=== PATIENT | male | born 1985 | race Caucasian/White ===

== ENCOUNTER 2016-10-14 14:33 | Emergency (ER) | payer BC, OTHER ==
[~2016-10-14] VITALS: Ht 177.8 cm; Wt 102.1 kg
[~2016-10-14 14:33] MED LIST: CPR500 PO
[2016-10-14 14:43] VITALS: TEMP 36.7; Ht 177.8 cm; Wt 102.1 kg
--- NOTE | 2016-10-14 15:04 | EMERGENCY ROOM VISIT NOTE ---
History Report prepared by Pankaj: Frederick Peraza Under the Supervision of: Dr. Eliza Orozco D.O. First contact with patient: 14:47 Chief Complaint: ANXIETY Stated Complaint: ANXIETY OUT OF CONTROL History of Present Illness The patient is a 31 year old male who presents to the Emergency Room with complaints of persistent anxiety for the past three days. The patient becomes anxious about irrational thoughts, such as being fixated on his own breathing or the need to urinate. Yesterday he had to call [facility] because he could not stop worrying about his breathing. He is not sure what triggered this episode of anxiety. He had a similar episode in August when he was obsessed with the need to urinate. At that time, he saw a therapist and eventually was back at baseline. He does not take any medications. He also has a history of depression. He denies any suicidal or homicidal ideations. The patient does have a family history of depression and suicide. The patient was diagnosed with diabetes in the past which is under control with dietary changes. He does not take anything or even check his sugars. He denies any recent illness. Source of History: patient Onset: three days ago Position: other (psyche ) Quality: other (anxious) Timing: other (persistent) Modifying Factors (Worsening): other (no known triggers) Review of Systems See HPI for pertinent positives & negatives. A total of 10 systems reviewed and were otherwise negative. Past Medical & Surgical Medical Problems: (1) Depression (2) Diabetes Family History FH: depression Social History Smoking Status: Never Smoker Marital Status: single Occupation Status: employed Current/Historical Medications Scheduled PRN Lorazepam (Ativan), 1 MG PO Q8H PRN for Anxiety/Insomnia Allergies Coded Allergies: No Known Allergies (Unverified , 10/14/16) Physical Exam Vital Signs Date Time Temp Pulse Resp B/P Pulse Ox O2 Delivery O2 Flow Rate FiO2 10/14/16 18:58 89 18 135/84 98 Room Air 10/14/16 17:36 90 18 157/76 98 Room Air 10/14/16 16:15 71 18 134/81 98 Room Air 10/14/16 14:43 36.7 85 18 133/90 97 Room Air Physical Exam GENERAL: alert, well appearing, well nourished, no distress, non-toxic EYE EXAM: normal conjunctiva, PERRL and EOM's grossly intact OROPHARYNX: no exudate, no erythema, lips, buccal mucosa, and tongue normal and mucous membranes are moist NECK: supple, no nuchal rigidity, no adenopathy, non-tender LUNGS: Clear to auscultation. Normal chest wall mechanics HEART: no murmurs, S1 normal and S2 normal ABDOMEN: abdomen soft, non-tender, normo-active bowel sounds, no masses, no rebound or guarding. BACK: Back is symmetrical on inspection and there is no deformity, no midline tenderness, no CVA tenderness. SKIN: no rashes and no bruising UPPER EXTREMITIES: upper extremities are grossly normal. LOWER EXTREMITIES: No pitting edema. NEURO EXAM: Normal sensorium, cranial nerves II-XII grossly intact, normal speech, no gross weakness of arms, no gross weakness of legs. Gross sensation intact. Medical Decision & Procedures ER Provider Diagnostic Interpretation: Results have been interpreted by the radiologist and reviewed by me. BILIARY ULTRASOUND CLINICAL HISTORY: Abnormal LFTs COMPARISON STUDY: CT scan dated 04/20/2010 FINDINGS: The pancreas was poorly visualized. The liver is of increased echogenicity, nonspecific finding most often seen in hepatic steatosis. The gallbladder appears sonographically normal. There is no ductal dilatation. The common bile duct measured 4 mm. There is no right-sided hydronephrosis. IMPRESSION: 1. Suspected hepatic steatosis 2. Normal gallbladder. No evidence of ductal dilatation 3. Nondiagnostic evaluation of the pancreas Electronically signed by: Darren Chawla M.D. 10/14/2016 6:24 PM Dictated Date/Time: 10/14/2016 6:23 PM Laboratory Results 10/14/16 15:42 Red Blood Count 5.61, Mean Corpuscular Volume 82.2, Mean Corpuscular Hemoglobin 28.0, Mean Corpuscular Hemoglobin Concent 34.1, Mean Platelet Volume 11.4, Neutrophils (%) (Auto) 70.2, Lymphocytes (%) (Auto) 18.0, Monocytes (%) (Auto) 8.2, Eosinophils (%) (Auto) 2.4, Basophils (%) (Auto) 0.9, Neutrophils # (Auto) 4.02, Lymphocytes # (Auto) 1.03, Monocytes # (Auto) 0.47, Eosinophils # (Auto) 0.14, Basophils # (Auto) 0.05 10/14/16 15:42 Test 10/14/16 15:33 10/14/16 15:42 10/14/16 16:06 Bedside Glucose 146 mg/dl (70-99) White Blood Count 5.73 K/uL (4.8-10.8) Red Blood Count 5.61 M/uL (4.7-6.1) Hemoglobin 15.7 g/dL (14.0-18.0) Hematocrit 46.1 % (42-52) Mean Corpuscular Volume 82.2 fL (80-100) Mean Corpuscular Hemoglobin 28.0 pg (25-34) Mean Corpuscular Hemoglobin Concent 34.1 g/dl (32-36) Platelet Count 250 K/uL (130-400) Mean Platelet Volume 11.4 fL (7.4-10.4) Neutrophils (%) (Auto) 70.2 % Lymphocytes (%) (Auto) 18.0 % Monocytes (%) (Auto) 8.2 % Eosinophils (%) (Auto) 2.4 % Basophils (%) (Auto) 0.9 % Neutrophils # (Auto) 4.02 K/uL (1.4-6.5) Lymphocytes # (Auto) 1.03 K/uL (1.2-3.4) Monocytes # (Auto) 0.47 K/uL (0.11-0.59) Eosinophils # (Auto) 0.14 K/uL (0-0.5) Basophils # (Auto) 0.05 K/uL (0-0.2) RDW Standard Deviation 38.1 fL (36.4-46.3) RDW Coefficient of Variation 12.7 % (11.5-14.5) Immature Granulocyte % (Auto) 0.3 % Immature Granulocyte # (Auto) 0.02 K/uL (0.00-0.02) Anion Gap 6.0 mmol/L (3-11) Est Creatinine Clear Calc Drug Dose 115.4 ml/min Estimated GFR () 102.4 Estimated GFR (Non- 88.4 BUN/Creatinine Ratio 11.6 (10-20) Calcium Level 9.7 mg/dl (8.5-10.1) Total Bilirubin 0.6 mg/dl (0.2-1) Direct Bilirubin 0.1 mg/dl (0-0.2) Aspartate Amino Transf (AST/SGOT) 84 U/L (15-37) Alanine Aminotransferase (ALT/SGPT) 189 U/L (12-78) Alkaline Phosphatase 61 U/L (45-117) Total Protein 8.2 gm/dl (6.4-8.2) Albumin 4.3 gm/dl (3.4-5.0) Thyroid Stimulating Hormone (TSH) 0.714 uIu/ml (0.300-4.500) Ethyl Alcohol mg/dL < 3.0 mg/dl (0-3) Urine Color DK YELLOW Urine Appearance CLEAR (CLEAR) Urine pH 6.0 (4.5-7.5) Urine Specific [place] 1.025 (1.000-1.030) Urine Protein NEG (NEG) Urine Glucose (UA) 2+ (NEG) Urine Ketones 2+ (NEG) Urine Occult Blood NEG (NEG) Urine Nitrite NEG (NEG) Urine Bilirubin NEG (NEG) Urine Urobilinogen NEG (NEG) Urine Leukocyte Esterase NEG (NEG) Urine Opiates Screen NEG (NEG) Urine Methadone, Qualitative NEG (NEG) Urine Barbiturates NEG (NEG) Urine Phencyclidine (PCP) Level NEG (NEG) Ur Amphetamine/Methamphetamine NEG (NEG) MDMA (Ecstasy) Screen NEG (NEG) Urine Benzodiazepines Screen NEG (NEG) Urine Cocaine Metabolite NEG (NEG) Urine Marijuana (THC) NEG (NEG) Laboratory results per my review. Medications Administered Medications (Trade) Dose Ordered Sig/Javier Route Start Time Stop Time Status Last Admin Dose Admin Lorazepam (Ativan Tab) 0.5 mg NOW STAT SL 10/14/16 15:30 10/14/16 15:31 DC 10/14/16 15:57 0.5 MG ED Course 1455: The patient was evaluated in room A7. A complete history and physical exam was performed. 1530: Ativan 0.5 mg SL. 1700: The patient is feeling a little better but is still anxious. 1830: Reassessed the patient. He is feeling well enough to be discharged. Medical Decision Differential diagnosis: Etiologies such as mood disorder, infection, hypoglycemia, electrolyte abnormalities, cardiac sources, intracerebral event, toxicologic, neurologic, as well as others were entertained. Pt well appearing, no SI/HI/paranoia/hallucinations. Improved with ativan. Discussed lft's and glucose and advised f/u with PMD next week for a recheck. US reassuring. Pt had already made appt next week with PMD and counselor. Seen by psych porter sample case here and felt stable for outpt mgmt. Discussed with sx to watch/return for, use of ativan, additional coping strategies for stress, he verbalized understanding and was agreeable with plan. Impression Primary Impression: Acute anxiety Additional Impression: Depression Scribe Attestation The scribe's documentation has been prepared under my direction and personally reviewed by me in its entirety. I confirm that the note above accurately reflects all work, treatment, procedures, and medical decision making performed by me. Departure Information Dispostion Home / Self-Care Prescriptions Lorazepam (ATIVAN) 1 Mg Tab 1 MG PO Q8H Y for Anxiety/Insomnia, #10 TAB Prov: Eliza Orozco, DO 10/14/16 Referrals Bhavik Nguyen M.D. (PCP) Patient Instructions My [facility] Additional Instructions Please keep your appointments next week as scheduled. Please try to avoid any situations or stressors which could precipitate increased anxiety. Please use the ativan if you need it. If you take it you cannot drive. If you have any worsening symptoms or new concerns, please return to the emergency room. Problem Qualifiers Additional Impression: Depression Depression Type: unspecified Qualified Codes: F32.9 - Major depressive disorder, single episode, unspecified
[2016-10-14] MEDS ORDERED: LORAZEPAM 0.5 MG TAB SL STA (15:30)
[2016-10-14 15:53] LABS: BASO % 0.9 %; BASO ABS # 0.05 K/uL (0-0.2); COMPLETE YES; EOS % 2.4 %; HEMATOCRIT 46.1 % (42-52); IG% 0.3 %; LYMPH ABS # 1.03 K/uL (1.2-3.4); MEAN CELL VOLUME 82.2 fL (80-100); MEAN CORPUSCULAR HGB CONC 34.1 g/dl (32-36); MEAN PLATELET VOLUME 11.4 fL (7.4-10.4); MONO % 8.2 %; NEUT % 70.2 %; PLATELET COUNT 250 K/uL (130-400); RED BLOOD COUNT 5.61 M/uL (4.7-6.1); WHITE BLOOD COUNT 5.73 K/uL (4.8-10.8)
[2016-10-14 16:21] LABS: URINE APPEARANCE CLEAR (CLEAR); URINE BILIRUBIN NEG (NEG); URINE COLOR DK YELLOW; URINE NITRITE NEG (NEG); URINE SPECIFIC GRAVITY 1.025 (1.000-1.030); UROBILINOGEN NEG (NEG)
[2016-10-14 16:25] LABS: BUN/CREATININE RATIO 11.6 (10-20); CALCIUM 9.7 mg/dl (8.5-10.1); CREATININE 1.1 mg/dl (0.60-1.40); POTASSIUM 3.9 mmol/L (3.5-5.1)
[2016-10-14 16:29] LABS: MANUAL MICROSCOPIC REQUIRED? NO; REVIEW REQ? NO
[2016-10-14 16:35] LABS: THYROID STIMULATING HORMONE 0.714 uIu/ml (0.300-4.500)
[2016-10-14 16:41] LABS: BENZODIAZEPINE, URINE NEG (NEG); COCAINE,URINE NEG (NEG); PHENCYCLIDINE, URINE NEG (NEG)
--- NOTE | 2016-10-14 18:26 | DIAGNOSTIC IMAGING REPORT ---
BILIARY ULTRASOUND CLINICAL HISTORY: Abnormal LFTs COMPARISON STUDY: CT scan dated 04/20/2010 FINDINGS: The pancreas was poorly visualized. The liver is of increased echogenicity, nonspecific finding most often seen in hepatic steatosis. The gallbladder appears sonographically normal. There is no ductal dilatation. The common bile duct measured 4 mm. There is no right-sided hydronephrosis. IMPRESSION: 1. Suspected hepatic steatosis 2. Normal gallbladder. No evidence of ductal dilatation 3. Nondiagnostic evaluation of the pancreas Electronically signed by: Darren Chawla M.D. 10/14/2016 6:24 PM Dictated Date/Time: 10/14/2016 6:23 PM
[2016-10-14] MEDS ORDERED: ATV/1 PO (18:45)
[2016-10-14 18:58] VITALS: BP 135/84; PULSE 89; O2SAT 98
== END 2016-10-14 18:58 | disposition home or self-care (01) ==
LOC: C.EDB 14:35 → C.EDA 18:58
DX: F41.9 Anxiety disorder, unspecified (principal); F32.9 Major depressive disorder, single episode, unspecified; E11.9 Type 2 diabetes mellitus without complications; Z81.8 Family history of other mental and behavioral disorders

== ENCOUNTER 2016-10-18 17:23 | Inpatient (IN) | payer OTHER ==
[~2016-10-18] VITALS: Ht 177.8 cm; Wt 101.7 kg
[~2016-10-18 17:23] MED LIST changes: +ATV/1 PO; -CPR500 PO
--- NOTE | 2016-10-18 18:24 | EMERGENCY ROOM VISIT NOTE ---
History Report prepared by Pankaj: Radha Cotter Under the Supervision of: Dr. Gloria Magdaleno M.D. First contact with patient: 17:36 Chief Complaint: ANXIETY Stated Complaint: ANXIETY History of Present Illness The patient is a 31 year old male who presents to the Emergency Room for a mental health evaluation. The patient was seen in the ED 2 days ago for anxiety and depression. He was given Ativan and discharged home. He was supposed to follow-up with his PCP yesterday. The patient states that over the weekend his symptoms worsened. He had a difficult time keeping himself entertained while he was home alone. His thoughts have become more irrational. Monday night he had a difficult time going to the grocery store because he just did not have any motivation to do anything. He states, "I felt like something was just dragging me down." Yesterday he was feeling better during the day. He was productive at work and he had an appetite for the first time. Last night when he got home from work he just laid in bed and started focusing on his breathing. He started obsessing about his breathing and could not stop thinking about it. The patient did not sleep all night because he was focusing on taking every single breath. He called off of work today because he just wanted to sleep all day. He states that every time he woke up, he just started to think about how he was breathing. He states, "I just want to rip my lungs out or stab myself in the leg so I have something else to focus on. I'm at my wit's end." The patient reports that. "This is going to lead me to suicide. It is ruining my life." He denies any suicidal plan. He did not try to hurt himself. The patient has been taking Ativan without any relief of his anxiety. He states that his job is going well and there has not been a particularly stressful incident that triggered his feelings. He sees a therapist and called them today. No one was available to see him, and the nurse advised him to come to the ED for a mental health evaluation. 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 Review of Systems See HPI for pertinent positives & negatives. A total of 10 systems reviewed and were otherwise negative. Past Medical & Surgical Medical Problems: (1) Depression (2) Diabetes (3) Hepatic steatosis (4) IBS (irritable bowel syndrome) (5) Prediabetes Family History Cancer Diabetes mellitus FH: depression Social History Smoking Status: Never Smoker Smokeless Tobacco Use: No Alcohol Use: none Marital Status: single Housing Status: lives with roommate Occupation Status: employed Current/Historical Medications Scheduled Sertraline HCl (Sertraline HCl), 50 MG PO QAM Allergies Coded Allergies: No Known Allergies (Unverified , 10/18/16) Physical Exam Vital Signs Date Time Temp Pulse Resp B/P Pulse Ox O2 Delivery O2 Flow Rate FiO2 10/18/16 19:55 93 16 136/83 100 Room Air 10/18/16 17:30 36.7 94 18 136/88 98 Room Air Physical Exam Vital signs reviewed. General: Disheveled-appearing 31 year old male, in no significant distress. HEENT: No scleral icterus, PERRLA, neck supple. Atraumatic. Cardiovascular: Regular rate and rhythm, no extra sounds. Pulmonary: Clear to auscultation bilaterally, normal work of breathing. Abdomen: Soft, nontender, nondistended, positive bowel sounds. Musculoskeletal: Atraumatic, no peripheral edema. Neurologic: Patient awake alert and oriented x 3, full strength in all 4 extremities. Cranial nerves 2 through 12 grossly intact. Skin: Warm, dry, no rash Psych: No suicidal ideation but makes suicidal statements, no HI. Medical Decision & Procedures ER Provider Diagnostic Interpretation: Radiology results as stated below per my review and radiologist interpretation: HEAD CT NONCONTRAST CT DOSE: 537.48 mGy.cm HISTORY: Mental status change AMS TECHNIQUE: Multiaxial CT images of the head were performed without the use of intravenous contrast. Comparison: None. Findings: The paranasal sinuses and mastoid air cells are clear. The calvarium and skull base are intact. The ventricles and sulci are within normal limits. There is no mass, hematoma, midline shift, or acute infarct. Impression: No acute intracranial abnormality. Electronically signed by: Oscar Dior M.D. 10/18/2016 7:55 PM Dictated Date/Time: 10/18/2016 7:54 PM Laboratory Results 10/18/16 18:30 Red Blood Count 5.55, Mean Corpuscular Volume 82.3, Mean Corpuscular Hemoglobin 27.9, Mean Corpuscular Hemoglobin Concent 33.9, Mean Platelet Volume 11.1, Neutrophils (%) (Auto) 70.8, Lymphocytes (%) (Auto) 19.1, Monocytes (%) (Auto) 7.6, Eosinophils (%) (Auto) 1.7, Basophils (%) (Auto) 0.5, Neutrophils # (Auto) 4.10, Lymphocytes # (Auto) 1.11, Monocytes # (Auto) 0.44, Eosinophils # (Auto) 0.10, Basophils # (Auto) 0.03 10/18/16 18:30 Test 10/18/16 18:30 10/18/16 19:10 White Blood Count 5.80 K/uL (4.8-10.8) Red Blood Count 5.55 M/uL (4.7-6.1) Hemoglobin 15.5 g/dL (14.0-18.0) Hematocrit 45.7 % (42-52) Mean Corpuscular Volume 82.3 fL (80-100) Mean Corpuscular Hemoglobin 27.9 pg (25-34) Mean Corpuscular Hemoglobin Concent 33.9 g/dl (32-36) Platelet Count 252 K/uL (130-400) Mean Platelet Volume 11.1 fL (7.4-10.4) Neutrophils (%) (Auto) 70.8 % Lymphocytes (%) (Auto) 19.1 % Monocytes (%) (Auto) 7.6 % Eosinophils (%) (Auto) 1.7 % Basophils (%) (Auto) 0.5 % Neutrophils # (Auto) 4.10 K/uL (1.4-6.5) Lymphocytes # (Auto) 1.11 K/uL (1.2-3.4) Monocytes # (Auto) 0.44 K/uL (0.11-0.59) Eosinophils # (Auto) 0.10 K/uL (0-0.5) Basophils # (Auto) 0.03 K/uL (0-0.2) RDW Standard Deviation 37.9 fL (36.4-46.3) RDW Coefficient of Variation 12.6 % (11.5-14.5) Immature Granulocyte % (Auto) 0.3 % Immature Granulocyte # (Auto) 0.02 K/uL (0.00-0.02) Anion Gap 9.0 mmol/L (3-11) Est Creatinine Clear Calc Drug Dose 115.2 ml/min Estimated GFR () 102.4 Estimated GFR (Non- 88.4 BUN/Creatinine Ratio 8.5 (10-20) Calcium Level 8.9 mg/dl (8.5-10.1) Total Bilirubin 0.6 mg/dl (0.2-1) Aspartate Amino Transf (AST/SGOT) 64 U/L (15-37) Alanine Aminotransferase (ALT/SGPT) 157 U/L (12-78) Alkaline Phosphatase 64 U/L (45-117) Total Protein 7.7 gm/dl (6.4-8.2) Albumin 4.2 gm/dl (3.4-5.0) Globulin 3.5 gm/dl (2.5-4.0) Albumin/Globulin Ratio 1.2 (0.9-2) Thyroid Stimulating Hormone (TSH) 0.874 uIu/ml (0.300-4.500) Salicylates Level < 1.7 mg/dl (2.8-20) Acetaminophen Level < 2 ug/ml (10-30) Ethyl Alcohol mg/dL < 3.0 mg/dl (0-3) Urine Color YELLOW Urine Appearance CLEAR (CLEAR) Urine pH 6.5 (4.5-7.5) Urine Specific [place] 1.008 (1.000-1.030) Urine Protein NEG (NEG) Urine Glucose (UA) 1+ (NEG) Urine Ketones NEG (NEG) Urine Occult Blood NEG (NEG) Urine Nitrite NEG (NEG) Urine Bilirubin NEG (NEG) Urine Urobilinogen NEG (NEG) Urine Leukocyte Esterase NEG (NEG) Urine Synthetic Stimulants see note Urine Opiates Screen NEG (NEG) Urine Methadone, Qualitative NEG (NEG) Urine Barbiturates NEG (NEG) Urine Phencyclidine (PCP) Level NEG (NEG) Ur Amphetamine/Methamphetamine NEG (NEG) MDMA (Ecstasy) Screen NEG (NEG) Urine Benzodiazepines Screen NEG (NEG) Urine Cocaine Metabolite NEG (NEG) Cannabinoids Comment see note Urine Synthetic Cannabinoids NEGATIVE (Negative) Ur Synthetic Cannabinoids Confirm (()) Urine Marijuana (THC) NEG (NEG) Laboratory results per my review. ED Course 1736: Past medical records reviewed. The patient was evaluated in room A5. A complete history and physical examination was performed. 2104: The patient has been accepted to [facility] for further management. Medical Decision Differential diagnosis: Etiologies such as mood disorder, infection, hypoglycemia, electrolyte abnormalities, cardiac sources, intracerebral event, toxicologic, neurologic, as well as others were entertained. This patient was evaluated and medically cleared. CT scan of the head was negative. Laboratory work is unrevealing. The patient was evaluated by [facility] for voluntary inpatient psychiatric admission. Impression Primary Impression: Mood disorder Scribe Attestation The scribe's documentation has been prepared under my direction and personally reviewed by me in its entirety. I confirm that the note above accurately reflects all work, treatment, procedures, and medical decision making performed by me. Departure Information Dispostion [facility] Acute Care Prescriptions Sertraline HCl (Sertraline HCl) 50 Mg Tab 50 MG PO QA, #30 TAB Prov: Magy Chavez,DEVIN 10/20/16 Referrals Bhavik Nguyen M.D. (PCP) Patient Instructions My [facility]
[2016-10-18 18:51] LABS: BASO % 0.5 %; BASO ABS # 0.03 K/uL (0-0.2); COMPLETE YES; EOS % 1.7 %; HEMATOCRIT 45.7 % (42-52); IG% 0.3 %; LYMPH % 19.1 %; LYMPH ABS # 1.11 K/uL (1.2-3.4); MEAN CELL VOLUME 82.3 fL (80-100); MEAN CORPUSCULAR HEMOGLOBIN 27.9 pg (25-34); MEAN CORPUSCULAR HGB CONC 33.9 g/dl (32-36); MEAN PLATELET VOLUME 11.1 fL (7.4-10.4); MONO % 7.6 %; NEUT % 70.8 %; PLATELET COUNT 252 K/uL (130-400); RED BLOOD COUNT 5.55 M/uL (4.7-6.1)
[2016-10-18 19:18] LABS: ACETAMINOPHEN < 2 ug/ml (10-30)
[2016-10-18 19:23] LABS: BUN/CREATININE RATIO 8.5 (10-20); CALCIUM 8.9 mg/dl (8.5-10.1); CREATININE 1.1 mg/dl (0.60-1.40); POTASSIUM 3.5 mmol/L (3.5-5.1)
[2016-10-18 19:33] LABS: ALB/GLOB RATIO 1.2 (0.9-2); THYROID STIMULATING HORMONE 0.874 uIu/ml (0.300-4.500)
[2016-10-18 19:42] LABS: URINE APPEARANCE CLEAR (CLEAR); URINE BILIRUBIN NEG (NEG); URINE COLOR YELLOW; URINE NITRITE NEG (NEG); URINE PH 6.5 (4.5-7.5); URINE SPECIFIC GRAVITY 1.008 (1.000-1.030); UROBILINOGEN NEG (NEG); ZZUR CULT IF INDIC CLEAN CATCH NO
[2016-10-18 19:45] LABS: MANUAL MICROSCOPIC REQUIRED? NO; REVIEW REQ? NO
--- NOTE | 2016-10-18 19:56 | DIAGNOSTIC IMAGING REPORT ---
HEAD CT NONCONTRAST CT DOSE: 537.48 mGy.cm HISTORY: Mental status change AMS TECHNIQUE: Multiaxial CT images of the head were performed without the use of intravenous contrast. Comparison: None. Findings: The paranasal sinuses and mastoid air cells are clear. The calvarium and skull base are intact. The ventricles and sulci are within normal limits. There is no mass, hematoma, midline shift, or acute infarct. Impression: No acute intracranial abnormality. Electronically signed by: Oscar Dior M.D. 10/18/2016 7:55 PM Dictated Date/Time: 10/18/2016 7:54 PM
[2016-10-18 20:14] LABS: BENZODIAZEPINE, URINE NEG (NEG); COCAINE,URINE NEG (NEG); PHENCYCLIDINE, URINE NEG (NEG)
[2016-10-18] MEDS ORDERED: hydrOXYzine HCL 25 MG TAB PO PRN ×2 (21:00)
[2016-10-18] MEDS ORDERED: ALUMINUM/MAGNESIUM SUSP 30 ML UDC PO PRN (21:00)
[2016-10-18] MEDS ORDERED: ACETAMINOPHEN 325 MG TAB PO PRN (21:00)
[2016-10-18] MEDS ORDERED: BISMUTH SUBSALICYLATE PER ML OMNICELL CHARGE PO PRN (21:00)
[2016-10-18] MEDS ORDERED: SODIUM CHLORIDE 0.65% NA SOLN 45 ML (OCEAN) PRN (21:00)
[2016-10-18] MEDS ORDERED: MAGNESIUM HYDROXIDE SUSP 30 ML UDC PO PRN (21:00)
[2016-10-18 21:28] VITALS: O2SAT 100
[2016-10-18 22:24] VITALS: BP 137/88; PULSE 92; TEMP 36.8; Ht 177.8 cm; Wt 101.7 kg
[2016-10-19 07:01] VITALS: BP_SYST 121; BP_SYST 143; BP_DIAS 78; BP_DIAS 88; PULSE 77; PULSE 98; TEMP 36.7
--- NOTE | 2016-10-19 11:15 | Psychiatric History & Physical ---
History Date of Service Oct 19, 2016. Identifying Data Austyn Ríos is a 31-year-old male who is admitted to our unit on a 201 voluntary commitment through the emergency room, with severe anxiety and inability to function outside of a structured. Information is gathered from the patient and considered to be reliable. Chief Complaint "Started in late July when I was obsessed with urination.". History of Present Illness Austyn Ríos is a 31-year-old gentleman with no significant psychiatric background, who reports that since late July he has noticed an increasing pattern of anxiety and obsessive thinking. In July it started with obsessing about urination, whether to go, whether or not to go. He describes that it became constant and disrupted his entire day. He did notice a pattern in which if he was distracted he would stop obsessing but as soon as he was idle , the rumination would restart. This progressed to the point that his obsessions were all-consuming. He got an emergency therapy appointment with [facility] at [facility] on ' and said that he felt better afterwards. He has been somewhat inconsistent in following up with therapy since then. Last week, the obsessions morphed into thinking about his breathing. He said that it was "all-consuming" and couldn't do anything else but think about his breathing. He admits he has no coping strategies for these times. He continued to disrupt his life and yesterday, he really presented to the emergency room, all worrying that he could not go on with this degree of anxiety. He had presented to the ER on October 14 as well, was sent home with a short supply of Ativan, which the patient did not feel was helpful. Today the patient says that his mood is both depressed and anxious. He denies that he is having any suicidal or homicidal thinking. He's had a chronic pattern of initial insomnia for about the last 6 years, taking 1-3 hours to fall asleep. He has never sought any solutions to this. He reports impaired appetite but his weight has been stable. He reports chronic anxiety predating these most acute symptoms. He started having panic attacks in April 2016, triggered by his impaired sleep. He describes his panic as feeling like he is having a heart attack. The frequency with which she experiences these is "sparse". He denies ever having had any auditory or visual hallucinations. He denies any self-injurious behaviors. He denies any discrete episodes of euphoric mood, sleeplessness or pleasure seeking behaviors that would be congruent with a bipolar disorder. Past Psychiatric History Current OP Treatment: therapist (Mark Szymanski at [facility]) Prior OP Treatment: no prior treatment Prior Psych Hospitalizations: none Access to a Gun: No Suicide Attempts: No Past Medication Trials Ativan given by the ER 10/14/16, not effective Past Medical/Surgical History History of Concussion/Seizure: No (1) IBS (irritable bowel syndrome) (2) Prediabetes Allergies Allergies: Coded Allergies: No Known Allergies (Unverified , 10/18/16) Family History Cancer Diabetes mellitus FH: depression History of Suicide: Yes (maternal uncle shot himself) History of Substance Abuse: No Psychiatric History: Yes (father's side with depression, an aunt with possible bipolar disorder) Alcohol Use Alcohol Use In Past 12 Months: Yes (Last ingestion "1 week ago- 5 drinks", typical drinksevery Monday2-3 drinks) AUDIT Total Score: 4 Smoking Use Smoking Status: Never Smoker Personal History [place] in: [place] 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 [employer] Relationship History: never Children: none Spiritual Affiliation: none Legal History: none Additional Comments: none Review of Systems Constitutional: denies no symptoms reported, denies see HPI, denies chills, denies diaphoresis, denies fever, denies malaise, denies weakness, denies other Eyes: denies: as stated in HPI, blurred vision, discharge, double vision, eye pain, itching, no symptoms, other, photophobia, redness, tearing, visual changes ENT: denies: dental pain, ear discharge, ear pain, epistaxis, gum swelling, loss of hearing, mouth pain, mouth swelling, nasal congestion, nasal pain, no symptoms reported, other, rhinorrhea, see HPI, sore throat, stidor, throat swelling, tinnitus Cardiovascular: denies: chest pain, chest pressure, chest tightness, diaphoresis, no symptoms reported, other, palpitations, see HPI, syncope Respiratory: denies: JONES, PND, cough, cyanosis, no symptoms reported, orthopnea , other, see HPI, short of breath, sputum production, stridor, wheezing Gastrointestinal: diarrhea (X today. has IBS), nausea (with anxiety) Genitourinary - Male: denies: amenorrhea, impotence, no symptoms, other, penile discharge, penile itching, rash, see HPI, testicular pain, testicular swelling Musculoskeletal: denies no symptoms reported, denies see HPI, denies back pain , denies gout, denies joint pain, denies joint swelling, denies muscle pain, denies muscle stiffness, denies neck pain, denies other Integumentary: other (rt plantar wart) Neurologic: denies: dizziness, focal weakness, general weakness, headache, lethargy, memory loss, no symptoms, numbness, other, paresthesias, pre-existing deficit, see HPI, seizure, tics, tingling, tremors, vertigo Endocrine: denies: as stated in HPI, cold intolerance, goiter, hair changes, heat intolerance, no symptoms, other, polydipsia, polyuria, skin changes Hematologic / Lymphatic: denies: abnormal clotting, adenopathy, anemia, as stated in HPI, easy bleeding, easy bruising, gums bleeding, no symptoms, other, petechiae Examination Physical Examination Exam performed by Dr. Magdaleno has been reviewed and accepted as medical clearance for admission to [facility] Vital Signs Vital Signs Past 12 Hours Date Time Temp Pulse Resp B/P Pulse Ox O2 Delivery O2 Flow Rate FiO2 10/19/16 07:01 36.7 77 16 121/78 98 143/88 Laboratory Results Last 24 Hours Test 10/18/16 18:30 10/18/16 19:10 White Blood Count 5.80 K/uL Red Blood Count 5.55 M/uL Hemoglobin 15.5 g/dL Hematocrit 45.7 % Mean Corpuscular Volume 82.3 fL Mean Corpuscular Hemoglobin 27.9 pg Mean Corpuscular Hemoglobin Concent 33.9 g/dl Platelet Count 252 K/uL Mean Platelet Volume 11.1 fL Neutrophils (%) (Auto) 70.8 % Lymphocytes (%) (Auto) 19.1 % Monocytes (%) (Auto) 7.6 % Eosinophils (%) (Auto) 1.7 % Basophils (%) (Auto) 0.5 % Neutrophils # (Auto) 4.10 K/uL Lymphocytes # (Auto) 1.11 K/uL Monocytes # (Auto) 0.44 K/uL Eosinophils # (Auto) 0.10 K/uL Basophils # (Auto) 0.03 K/uL RDW Standard Deviation 37.9 fL RDW Coefficient of Variation 12.6 % Immature Granulocyte % (Auto) 0.3 % Immature Granulocyte # (Auto) 0.02 K/uL Sodium Level 140 mmol/L Potassium Level 3.5 mmol/L Chloride Level 104 mmol/L Carbon Dioxide Level 27 mmol/L Anion Gap 9.0 mmol/L Blood Urea Nitrogen 9 mg/dl Creatinine 1.10 mg/dl Est Creatinine Clear Calc Drug Dose 115.2 ml/min Estimated GFR () 102.4 Estimated GFR (Non- 88.4 BUN/Creatinine Ratio 8.5 Random Glucose 154 mg/dl Calcium Level 8.9 mg/dl Total Bilirubin 0.6 mg/dl Aspartate Amino Transf (AST/SGOT) 64 U/L Alanine Aminotransferase (ALT/SGPT) 157 U/L Alkaline Phosphatase 64 U/L Total Protein 7.7 gm/dl Albumin 4.2 gm/dl Globulin 3.5 gm/dl Albumin/Globulin Ratio 1.2 Thyroid Stimulating Hormone (TSH) 0.874 uIu/ml Salicylates Level < 1.7 mg/dl Acetaminophen Level < 2 ug/ml Ethyl Alcohol mg/dL < 3.0 mg/dl Urine Color YELLOW Urine Appearance CLEAR Urine pH 6.5 Urine Specific [place] 1.008 Urine Protein NEG Urine Glucose (UA) 1+ Urine Ketones NEG Urine Occult Blood NEG Urine Nitrite NEG Urine Bilirubin NEG Urine Urobilinogen NEG Urine Leukocyte Esterase NEG Urine Opiates Screen NEG Urine Methadone, Qualitative NEG Urine Barbiturates NEG Urine Phencyclidine (PCP) Level NEG Ur Amphetamine/Methamphetamine NEG MDMA (Ecstasy) Screen NEG Urine Benzodiazepines Screen NEG Urine Cocaine Metabolite NEG Urine Marijuana (THC) NEG Mental Examination During interview pt is: alert and oriented Appearance: appropriately dressed, appropriately groomed, other (hair dyed red on the top) Eye contact is: good Motor behavior is: no abnormal motor movements Speech: normal in rate, rhythm & volume Affect: anxious Mood is: depressed, anxious Thought process: goal directed Thought content: obsessions, reality based without delusions Suicidal thought are: denied Homicidal thoughts are: denied Hallucinations: denies auditory, denies visual Cognition: memory grossly intact, attention grossly intact, language grossly intact Intelligence estimated to be: average Insight: limited Judgement: limited Impression / Recommendations Impression 31-year-old gentleman admitted with severe anxiety interfering with his ability to function. Although he has no rituals, he clearly has obsessions and so we will start treating this with an SSRI, Zoloft 25 mg today increasing to 50 mg tomorrow. Risks, benefits and alternatives reviewed and accepted including the FDA blackbox warning. He did not find benefit to a short trial of Ativan and so will use Vistaril when necessary for anxiety or sleep problems. We will need to establish outpatient psychiatric care, and coordinate with his current therapist. Although not suicidal today, he does not feel that he can function with this degree of anxiety and therefore requires inpatient mental health treatment. Inventory Assets Strengths: Intelligence, willing to engage in treatment Needs: Coping strategies for anxiety Risk Factors Assessment Male: Yes : Yes /single/: Yes Higher / Fall in social status: No Access to guns: No Health problems: Yes Mental Health Diagnoses: No Substance use disorders: No Previous attempt: No Previous psychiatric stay: No Hopelessness: No Smoker: No Protective Factors Assessment Jain beliefs: No : No Responsible for young children: No Employed: Yes Stable relationships: Yes Supportive family: Yes Recommendations (1) Obsessive compulsive disorder 10/19/16 -Start Zoloft 25 mg today increasing to 50 mg tomorrow and titrating as tolerated -Vistaril when necessary for anxiety or sleep -Every 15 minute checks for safety -Encourage participation in group and individual counseling -Assist the patient to learn and utilize additional healthy coping strategies -Explore concepts of mindfulness, relaxation and deep breathing -Coordinate care with current therapist -The patient will need psychiatric follow-up (2) Mood disorder 10/19/16 -Zoloft as above (3) Hepatic steatosis 10/19/16 -Diagnosed on imaging performed in the emergency room on 10/14/16 -Patient will need PCP follow-up -Encourage weight loss with diet and exercise (4) IBS (irritable bowel syndrome) 10/19/16 -Will need PCP follow-up (5) Prediabetes 10/19/16 -At this point is diet controlled. We will run FBS in the a.m. Has been reviewed with Dr. odette Albright CPT Code Initial Hospital Care: [id number]
[2016-10-19] MEDS ORDERED: SERTRALINE HCL 50 MG TAB PO ONE (12:00)
[2016-10-20 07:00] VITALS: BP_SYST 135; BP_SYST 150; BP_DIAS 78; BP_DIAS 95; PULSE 71; PULSE 86; TEMP 36.4
[2016-10-20] MEDS ORDERED: SERTRALINE HCL 50 MG TAB PO SCH (09:00)
[2016-10-20] MEDS ORDERED: ZLF50 PO (12:16)
--- NOTE | 2016-10-20 12:21 | Discharge Instructions ---
Discharge Information Report Includes Report will include the: Discharge Instructions & Summary Admission Admission Date / Time: Oct 18, 2016 at 21:01 Reason for Admission: Anxiety Nos Discharge Discharge Diagnosis / Problem: Obsessive compulsive disorder Condition at Discharge: Good Discharge Goals Goal(s): Decrease discomfort, Improve disease control, Prevent Disease Progression Activity Recommendations Activity Limitations: resume your previous activity . Instructions / Follow-Up Instructions / Follow-Up . SPECIAL CARE INSTRUCTIONS: 1. Follow through with your scheduled aftercare appointments. If unable to keep an appointment, please call to reschedule. 2. Take your medication only as prescribed. Medication should not be changed or stopped without the approval of your doctor. In the event of worsening symptoms or concerns about side effects, contact your doctor immediately. 3. Utilize new healthy coping skills, anger management skills, and stress management skills learned during your hospitalization. Journal feelings and process them with a support person. Identify stressors or situations that may result in relapse, deterioration or inappropriate behaviors and develop a plan to deal with those issues. 4. If your coping skills are ineffective and you are in crisis, contact your outpatient providers for direction. If unable to reach your providers, please call the CAN HELP LINE AT or go to the closest Emergency Room. 5. Avoid alcohol and un-prescribed drugs. 6. You have been provided with the Mental Health Advance Directives Pamphlet for your review. AFTERCARE APPOINTMENTS: * Please call your insurance company prior to your scheduled appointment to confirm your aftercare providers are covered. Take your insurance information to your appointments. . Discharge / Aftercare Planning Primary Care Physician: Name: Psychiatrist: Name: Dr. Dago Christiansen, [facility] [place] Date of Appointment: Nov 02, 2016 Time of Appointment: 10:15 Appointment Notes: bring insurance card, photo ID Therapist: Name Of Therapist: [facility] ([facility]) Date of Appointment: Oct 24, 2016 Time of Appointment: 12.00 It Web Development Consultant: Name: None Home Health Services: Home Health Services: none . Follow-Up Care Plan for Follow-Up Care: Will see Dr. Christiansen on 11/01, and his therapist on 10/24 Current Hospital Diet Patient's current hospital diet: Regular Diet Discharge Diet Recommended Diet: Regular Diet Procedures Procedures Performed: No Pending Studies Pending Studies at Discharge: No Medical Emergencies . Who to Call and When: Medical Emergencies: For questions or emergencies related to your hospital stay, please contact the Inpatient Behavioral Health Unit at [phone]. A driller and broacher is on-call 06/02 for the Behavioral Health Unit for emergencies At any time you feel your situation is an emergency, you may also call 911 immediately. . Non-Emergent Contact Non-Emergency issues call your: Psychiatrist, Therapist Advance Directives Existing Advance Directive: No Do You Have an Existing Mental: No Existing Living Will: No Existing Power of Pharmacy Picking Technician: No Advance Directives Info Given: To Pt/S.O. Advance Directives Reason: Declines as Mental Health Visit. Discharge Summary Admission HPI Per the Admitting provider: Austyn Ríos is a 31-year-old gentleman with no significant psychiatric background, who reports that since late July he has noticed an increasing pattern of anxiety and obsessive thinking. In July it started with obsessing about urination, whether to go, whether or not to go. He describes that it became constant and disrupted his entire day. He did notice a pattern in which if he was distracted he would stop obsessing but as soon as he was idle , the rumination would restart. This progressed to the point that his obsessions were all-consuming. He got an emergency therapy appointment [facility] ' and said that he felt better afterwards. He has been somewhat inconsistent in following up with therapy since then. Last week, the obsessions morphed into thinking about his breathing. He said that it was "all-consuming" and couldn't do anything else but think about his breathing. He admits he has no coping strategies for these times. He continued to disrupt his life and yesterday, he really presented to the emergency room, all worrying that he could not go on with this degree of anxiety. He had presented to the ER on October 14 as well, was sent home with a short supply of Ativan, which the patient did not feel was helpful. Today the patient says that his mood is both depressed and anxious. He denies that he is having any suicidal or homicidal thinking. He's had a chronic pattern of initial insomnia for about the last 6 years, taking 1-3 hours to fall asleep. He has never sought any solutions to this. He reports impaired appetite but his weight has been stable. He reports chronic anxiety predating these most acute symptoms. He started having panic attacks in April 2016, triggered by his impaired sleep. He describes his panic as feeling like he is having a heart attack. The frequency with which she experiences these is "sparse". He denies ever having had any auditory or visual hallucinations. He denies any self-injurious behaviors. He denies any discrete episodes of euphoric mood, sleeplessness or pleasure seeking behaviors that would be congruent with a bipolar disorder. Hospital Course (1) Obsessive compulsive disorder 10/19/16 -Start Zoloft 25 mg today increasing to 50 mg tomorrow and titrating as tolerated -Vistaril when necessary for anxiety or sleep -Every 15 minute checks for safety -Encourage participation in group and individual counseling -Assist the patient to learn and utilize additional healthy coping strategies -Explore concepts of mindfulness, relaxation and deep breathing -Coordinate care with current therapist -The patient will need psychiatric follow-up (2) Mood disorder 10/19/16 -Zoloft as above (3) Hepatic steatosis 10/19/16 -Diagnosed on imaging performed in the emergency room on 10/14/16 -Patient will need PCP follow-up -Encourage weight loss with diet and exercise (4) IBS (irritable bowel syndrome) 10/19/16 -Will need PCP follow-up (5) Prediabetes 10/19/16 -At this point is diet controlled. We will run FBS in the a.m. Risk Factors Assessment Male: Yes : Yes /single/: Yes Higher / Fall in social status: No Health problems: Yes Mental Health Diagnoses: No Substance use disorders: No Previous attempt: No Previous psychiatric stay: No Hopelessness: No Smoker: No Protective Factors Assessment Jain beliefs: No : No Responsible for young children: No Employed: Yes Stable relationships: Yes Supportive family: Yes Day of Discharge Assessment COURSE OF HOSPITALIZATION: During the patient's brief 2 day stay, he was stabilized on Zoloft 50 mg daily which she tolerated without side effect. The patient was admitted with severe anxiety feeling that he was not safe with himself at home. He was ruminating about various things such as his breathing or previously urinating, and could not stop the intrusive thoughts. He has had similar symptoms past although at a lesser degree. After some education about the nature of OCD at the impact of medications, the patient felt great relief knowing that he would have some tools to use to address the ruminations. He found good information in the groups, talking about coping strategies. He was without ruminations during his stay and therefore felt that he was capable of returning home and using his newly found coping strategies to move forward. He is thankful to be getting psychiatric aftercare at some point health and would like to return to work as soon as tomorrow. DAY OF DISCHARGE ASSESSMENT: Today the patient is saying that he feels good and is requesting discharge. His mood is good, feeling relief not having obsessions. He is getting good sleep, has good appetite, and is forward thinking. He can identify multiple coping strategies for use at home if he begins to ruminate. Today he is casually and appropriately dressed and groomed. Eye contact is good. Gait and station are within normal limits. Affect is restricted but able to smile. Speech is of normal rate volume and tone. Thoughts are organized and goal directed, and without evidence of thought disorder. Recent and remote memory are intact per conversation. Intelligence is estimated to be average. Insight and judgment are improved over admission. Laboratory Test 10/18/16 18:30 10/18/16 19:10 10/20/16 07:13 White Blood Count 5.80 Red Blood Count 5.55 Hemoglobin 15.5 Hematocrit 45.7 Mean Corpuscular Volume 82.3 Mean Corpuscular Hemoglobin 27.9 Mean Corpuscular Hemoglobin Concent 33.9 Platelet Count 252 Mean Platelet Volume 11.1 Neutrophils (%) (Auto) 70.8 Lymphocytes (%) (Auto) 19.1 Monocytes (%) (Auto) 7.6 Eosinophils (%) (Auto) 1.7 Basophils (%) (Auto) 0.5 Neutrophils # (Auto) 4.10 Lymphocytes # (Auto) 1.11 Monocytes # (Auto) 0.44 Eosinophils # (Auto) 0.10 Basophils # (Auto) 0.03 RDW Standard Deviation 37.9 RDW Coefficient of Variation 12.6 Immature Granulocyte % (Auto) 0.3 Immature Granulocyte # (Auto) 0.02 Sodium Level 140 Potassium Level 3.5 Chloride Level 104 Carbon Dioxide Level 27 Anion Gap 9.0 Blood Urea Nitrogen 9 Creatinine 1.10 Est Creatinine Clear Calc Drug Dose 115.2 Estimated GFR () 102.4 Estimated GFR (Non- 88.4 BUN/Creatinine Ratio 8.5 Random Glucose 154 Calcium Level 8.9 Total Bilirubin 0.6 Aspartate Amino Transferase (AST) 64 Alanine Aminotransferase (ALT) 157 Alkaline Phosphatase 64 Total Protein 7.7 Albumin 4.2 Globulin 3.5 Albumin/Globulin Ratio 1.2 Thyroid Stimulating Hormone (TSH) 0.874 Salicylates Level < 1.7 Acetaminophen Level < 2 Ethyl Alcohol mg/dL < 3.0 Urine Color YELLOW Urine Appearance CLEAR Urine pH 6.5 Urine Specific [place] 1.008 Urine Protein NEG Urine Glucose (UA) 1+ Urine Ketones NEG Urine Occult Blood NEG Urine Nitrite NEG Urine Bilirubin NEG Urine Urobilinogen NEG Urine Leukocyte Esterase NEG Urine Synthetic Stimulants Pending Urine Opiates Screen NEG Urine Methadone, Qualitative NEG Urine Barbiturates NEG Urine Phencyclidine (PCP) Level NEG Ur Amphetamine/Methamphetamine NEG MDMA (Ecstasy) Screen NEG Urine Benzodiazepines Screen NEG Urine Cocaine Metabolite NEG Cannabinoids Comment Pending Urine Synthetic Cannabinoids Pending Ur Synthetic Cannabinoids Confirm Pending Urine Marijuana (THC) NEG Fasting Glucose 161 Total Time Total Time Spent (min): Greater than 30 minutes Total Time Included: examination of the patient, discharge planning, medication reconciliation, communication with other providers Tobacco Cessation at Discharge Smoking Status: Never Smoker FDA approved Prescription: non-smoker
[2016-10-24 11:27] LABS: SYNTHETIC CANNABINOIDS QL URIN NEGATIVE (Negative)
== END 2016-10-20 13:15 | disposition home or self-care (01) | DRG 882 ==
LOC: C.EDB 17:24 → C.MHU 21:01
PROVIDERS: ADMIT Psychiatry & Neurology Child & Adolescent Psychiatry; ATTEND Psychiatry & Neurology Psychiatry
DX: F42.9 Obsessive-compulsive disorder, unspecified (principal); F41.9 Anxiety disorder, unspecified; F39 Unspecified mood [affective] disorder; R73.03 Prediabetes; K58.9 Irritable bowel syndrome, unspecified; K76.0 Fatty (change of) liver, not elsewhere classified; Z81.8 Family history of other mental and behavioral disorders; Z79.899 Other long term (current) drug therapy